=== PATIENT | female | born 1975 | race Caucasian/White ===

== ENCOUNTER 2018-07-15 19:23 | Emergency (ER) | payer MEDICAID ==
[2018-07-15 19:42] VITALS: BP 105/70
--- NOTE | 2018-07-15 20:46 | EDM.PDOC ---
<Ewa Foreman - Last Filed: 07/15/18 20:40> ED HPI GENERAL MEDICAL PROBLEM - General Chief Complaint: Upper Extremity Injury/Pain Stated Complaint: POSSIBLE BROKEN HAND Time Seen by Provider: 07/15/18 20:00 Source of Information: Reports: Patient History Limitations: Reports: No Limitations - History of Present Illness INITIAL COMMENTS - FREE TEXT/NARRATIVE: Pt fell approximately 10 days ago injuring her left hand. She thinks she jammed her thumb. This last weekend she fell out of be injuring her hand further. 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 Currently she states pain in the region of the thumb. Additionally she reports a headache that she attributes to the fall. Pt states otherwise well. Onset: Gradual Onset Date: 07/05/18 Onset Time: 15:00 Duration: Day(s):, Getting Worse Location: Reports: Upper Extremity, Left (mainly in the region of the thumb) Quality: Reports: Dull, Throbbing Severity: Moderate Improves with: Reports: Immobilization Worsens with: Reports: Movement Context: Reports: Trauma Associated Symptoms: Reports: No Other Symptoms Treatments MED SURG NURSE: Reports: Other (see below) (tape) Left Wrist Pain Score (Numeric/FACES): 3 - Related Data Allergies Allergy/AdvReac Type Severity Reaction Status Date / Time hydrocodone bitartrate Allergy Dizziness Verified 07/15/18 20:11 [From Vicodin] anxiety medication Allergy Seizure Uncoded 07/15/18 20:11 Home Meds: Home Meds Rizatriptan [Maxalt MANAGER APPLICATION DEVELOPMENT] 1 tab PO ASDIRECTED PRN 08/05/15 [History] 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 Medical 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: Neurological History: Reports: Migraines Psychiatric History: Reports: Anxiety Oncologic (Cancer) History: Reports: Basal Cell Carcinoma Dermatologic History: Reports: Other (See Below) Other Dermatologic History: 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 - Infectious Disease History Infectious Disease History: Reports: Chicken Pox - Past Surgical History GI Surgical History: Reports: Colonoscopy, EGD Female Surgical History: Reports: Tubal Ligation Endocrine Surgical History: Reports: Thyroidectomy Musculoskeletal Surgical History: Reports: Shoulder Surgery Oncologic Surgical History: Reports: Other (See Below) Social & Family History - Tobacco Use Smoking Status *Q: Current Every Day Smoker Years of Tobacco use: 20 Packs/Tins Daily: 0.5 Used Tobacco, but Quit: No Second Hand Smoke Exposure: Yes - Caffeine Use Caffeine Use: Reports: Soda - Recreational Drug Use Recreational Drug Use: No Review of Systems - Review of Systems Review Of Systems: See Below Constitutional: Reports: No Symptoms Musculoskeletal: Reports: Joint Pain (left thumb and wrist) Skin: Reports: No Symptoms Neurological: Reports: No Symptoms ED EXAM, GENERAL - Physical Exam Exam: See Below Exam Limited By: No Limitations General Appearance: Alert, WD/WN, No Apparent Distress Extremities: Normal Inspection, Normal Range of Motion, Normal Capillary Refill , Other (tender left thumb to palpation distally. pt has full ROM and sensation , without bruising or swelling noted) Neurological: Alert, Oriented, CN II-XII Intact, Normal Cognition, Normal Gait, Normal Reflexes Skin Exam: Warm, Dry, Intact, Normal Color Course - Vital Signs Last Recorded V/S: Last Vital Signs Temp 98.3 F 07/15/18 20:18 Pulse 87 07/15/18 20:18 Resp 14 07/15/18 20:18 BP 105/70 07/15/18 20:18 Pulse Ox 98 07/15/18 20:18 - Orders/Labs/Meds Orders: Active Orders 24 hr Category Date Time Status DME for Discharge [COMM] Per Unit Routine Oth 07/15/18 21:18 Ordered Unable to appreciate fracture or dislocation of left hand, thumb or wrist - waiting radiologist read to ensure no abnormal findings Departure - Departure Disposition: Home, Self-Care 01 Clinical Impression: Left thumb sprain Qualifiers: Encounter type: initial encounter Sprain of finger site: unspecified site Qualified Code(s): S63.602A - Unspecified sprain of left thumb, initial encounter - Discharge Information Referrals: Sarah Beth Tan NP [Primary Care Provider] - Forms: ED Department Discharge Additional Instructions: Continue to use splint as needed for comfort, use Tylenol or Motrin as needed for pain control, Please followup with your primary care provider in 5-7 days if not better, please call return to the emergency department with worsening of symptoms. - My Orders Last 24 Hours: My Active Orders 07/15/18 21:18 DME for Discharge [COMM] Per Unit Routine - Assessment/Plan Last 24 Hours: My Active Orders 07/15/18 21:18 DME for Discharge [COMM] Per Unit Routine <OfficerCr - Last Filed: 07/15/18 21:20> ED EXAM, GENERAL - Physical Exam Free Text/Narrative:: Agree with exam below Departure - Departure Time of Disposition: 21:20 Condition: Fair - Assessment/Plan Plan: Assessment Acuity = acute Site and laterality = thumb sprain left Etiology = secondary to trauma Manifestations = none Location of injury = Home Lab values = x-rays negative for any fracture Plan She is placed in a thumb spica splint follow-up with primary care in 5-7 days if no improvement continued use Tylenol Motrin as needed for pain control This note was dictated using [employer] voice recognition software please call with any questions on syntax or grammar.
--- NOTE | 2018-07-15 21:03 | CRLCR ---
INDICATION: Status post fall, proximal thumb pain TECHNIQUE: Left hand three views COMPARISON: None FINDINGS AND IMPRESSION: Normal alignment. No fracture. No significant soft tissue swelling. No degenerative changes. Dictated by Dinorah Mesa MD @ 07/15/2018 9:02:32 PM Dictated by: Dinorah Mesa MD @ 07/15/2018 21:02:39 (Electronically Signed)
== END 2018-07-15 21:41 | disposition home or self-care (01) ==
LOC: JP.ED 19:23
DX: S63.602A Unspecified sprain of left thumb, initial encounter (principal); F17.210 Nicotine dependence, cigarettes, uncomplicated; Z88.5 Allergy status to narcotic agent
CPT/HCPCS: 29125; 73130-LT; 99283-25

== ENCOUNTER 2020-08-15 10:38 | Emergency (ER) | payer MEDICAID ==
[2020-08-15] MEDS ORDERED: diphenhydrAMINE 50 MG/ML SDV IVPUSH ONE (11:07)
[2020-08-15] MEDS ORDERED: Ketorolac 30 MG/ML SDV IVPUSH ONE (11:07)
[2020-08-15] MEDS ORDERED: Prochlorperazine 10 MG/2 ML SDV IVPUSH ONE (11:07)
[2020-08-15] MEDS ORDERED: Sodium Chloride 0.9% 10 ML Syringe FLUSH PRN (11:07)
--- NOTE | 2020-08-15 11:11 | EDM.PDOC ---
ED HPI GENERAL MEDICAL PROBLEM - General Chief Complaint: Headache Stated Complaint: migraine Time Seen by Provider: 08/15/20 11:01 Source of Information: Reports: Patient, RN Notes Reviewed History Limitations: Reports: No Limitations - History of Present Illness INITIAL COMMENTS - FREE TEXT/NARRATIVE: 45-year-old female presents emergency department day complaint of headache, she has a known history of migraines she states this is very typical for her she does not have an aura she usually uses Maxalt unfortunately she ran out of that medication, has photophobia and nausea no fever - Related Data Allergies Allergy/AdvReac Type Severity Reaction Status Date / Time hydrocodone bitartrate Allergy Dizziness Verified 08/15/20 10:58 [From Vicodin] anxiety medication Allergy Seizure Uncoded 08/15/20 10:58 Home Meds: Home Meds Rizatriptan [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 AND SERVICE DIRECTOR] 1 tab PO ASDIRECTED PRN 08/05/15 [History] Rizatriptan [Maxalt RV PARTS AND SERVICE DIRECTOR] 10 mg PO ASDIRECTED PRN #6 tab.dis 08/15/20 [Rx] 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: Neurological History: Reports: Migraines Psychiatric History: Reports: Anxiety Oncologic (Cancer) History: Reports: Basal Cell Carcinoma Dermatologic History: Reports: Other (See Below) Other Dermatologic History: 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 - Infectious Disease History Infectious Disease History: Reports: Chicken Pox - Past Surgical History GI Surgical History: Reports: Colonoscopy, EGD Female Surgical History: Reports: Tubal Ligation Endocrine Surgical History: Reports: Thyroidectomy Other Endocrine Surgeries/Procedures: partial thyroid removal Musculoskeletal Surgical History: Reports: Shoulder Surgery Oncologic Surgical History: Reports: Biopsy of Breast, Other (See Below) Other Oncologic Surgeries/Procedures: thyroid nodules removed Social & Family History - Tobacco Use Tobacco Use Status *Q: Current Every Day Tobacco User Years of Tobacco use: 20 Packs/Tins Daily: 0.5 - Caffeine Use Caffeine Use: Reports: Soda - Recreational Drug Use Recreational Drug Use: No ED ROS GENERAL - Review of Systems Review Of Systems: See Below Constitutional: Reports: No Symptoms HEENT: Reports: Eye Pain GI/Abdominal: Reports: Nausea Neurological: Reports: Headache - Physical Exam Exam: See Below Exam Limited By: No Limitations General Appearance: Alert, WD/WN, No Apparent Distress Eye Exam: Bilateral Eye: EOMI, Normal Fundi, PERRL Respiratory/Chest: No Respiratory Distress Course - Orders/Labs/Meds Orders: Active Orders 24 hr Category Date Time Status Peripheral IV Care [RC] . DIRECTED Care 08/15/20 11:07 Active Sodium Chloride 0.9% [Normal Saline] 1,000 ml Med 08/15/20 11:15 Active IV ASDIRECTED Sodium Chloride 0.9% [Saline Flush] Med 08/15/20 11:07 Active 10 ml FLUSH ASDIRECTED PRN Peripheral IV Insertion Adult [OM.PC] Urgent Oth 08/15/20 11:06 Ordered Medication Orders Sodium Chloride (Normal Saline) 1,000 mls @ 999 mls/hr IV ASDIRECTED PADMINI Last Admin: 08/15/20 11:52 Dose: 999 mls/hr Documented by: HUI Sodium Chloride (Sodium Chloride 0.9% 10 Ml Syringe) 10 ml FLUSH ASDIRECTED PRN PRN Reason: Keep Vein Open Meds: Medications Generic Name Dose Route Start Last Admin Trade Name Freq PRN Reason Stop Dose Admin Sodium Chloride 1,000 mls @ 999 mls/hr 08/15/20 11:15 08/15/20 11:52 Normal Saline IV 999 mls/hr ASDIRECTED PADMINI Administration Sodium Chloride 10 ml 08/15/20 11:07 Sodium Chloride 0.9% 10 Ml Syringe FLUSH ASDIRECTED PRN Keep Vein Open Discontinued Medications Generic Name Dose Route Start Last Admin Trade Name Freq PRN Reason Stop Dose Admin Diphenhydramine HCl 50 mg 08/15/20 11:07 08/15/20 11:54 Diphenhydramine 50 Mg/Ml Sdv IVPUSH 08/15/20 11:08 50 mg ONETIME ONE Administration Ketorolac Tromethamine 30 mg 08/15/20 11:07 08/15/20 11:55 Ketorolac 30 Mg/Ml Sdv IVPUSH 08/15/20 11:08 30 mg ONETIME ONE Administration Prochlorperazine Edisylate 5 mg 08/15/20 11:07 08/15/20 11:54 Prochlorperazine 10 Mg/2 Ml Sdv IVPUSH 08/15/20 11:08 5 mg ONETIME ONE Administration Departure - Departure Time of Disposition: 13:00 Disposition: Home, Self-Care 01 Condition: Fair Clinical Impression: Migraine - Discharge Information Prescriptions: Rizatriptan [Maxalt RV PARTS AND SERVICE DIRECTOR] 10 mg PO ASDIRECTED PRN #6 tab.dis PRN Reason: Headache Instructions: Migraine Headache, [id number] Referrals: PCP,None [Primary Care Provider] - Forms: ED Department Discharge Additional Instructions: Continue with your regular medications, your Maxalt has been faxed to [facility] pharmacy call return to the emergency department worsening of symptoms - My Orders Last 24 Hours: My Active Orders 08/15/20 11:06 Peripheral IV Insertion Adult [OM.PC] Urgent 08/15/20 11:07 Peripheral IV Care [RC] . DIRECTED Sodium Chloride 0.9% [Saline Flush] 10 ml FLUSH ASDIRECTED PRN 08/15/20 11:15 Sodium Chloride 0.9% [Normal Saline] 1,000 ml IV ASDIRECTED - Assessment/Plan Last 24 Hours: My Active Orders 08/15/20 11:06 Peripheral IV Insertion Adult [OM.PC] Urgent 08/15/20 11:07 Peripheral IV Care [RC] . DIRECTED Sodium Chloride 0.9% [Saline Flush] 10 ml FLUSH ASDIRECTED PRN 08/15/20 11:15 Sodium Chloride 0.9% [Normal Saline] 1,000 ml IV ASDIRECTED Plan: Assessment Acuity = acute Site and laterality = migraine Etiology = unknown Manifestations = none Location of injury = Home Lab values = none Plan Good improvement combination Toradol, Compazine and Benadryl 1 L fluids headache had improved she is can continue with regular medications prescription of Maxalt 10 mg written sent to [facility] total #6 This note was dictated using [employer] voice recognition software please call with any questions on syntax or grammar.
[2020-08-15] MEDS ORDERED: Sodium Chloride 0.9% 1,000 ML IV SCH (11:15)
[2020-08-15 13:01] VITALS: BP 117/72; PULSE 60
== END 2020-08-15 13:09 | disposition home or self-care (01) ==
LOC: JP.ED 10:38
DX: G43.909 Migraine, unspecified, not intractable, without status migrainosus (principal); Z88.5 Allergy status to narcotic agent; Z88.8 Allergy status to other drugs, medicaments and biological substances; Z72.0 Tobacco use
CPT/HCPCS: 96374; 96375; 99283; J0780; J1200; J1885; J7030

== ENCOUNTER 2024-01-11 15:30 | Emergency (ER) | payer MEDICAID ==
[2024-01-11] MEDS: Sodium Chloride 0.9% 1,000 ML IV SCH (16:30)
[2024-01-11] MEDS: Pantoprazole 40 MG Vial IVPUSH ONE (16:31)
[2024-01-11] MEDS: LORazepam 2 MG/ML SDV IVPUSH ONE (16:33)
[2024-01-11 16:36] LABS: BASE EXCESS ARTERIAL 1.4 mm/L; BICARBONATE,ARTERIAL 20.4 mmol/L (22.0-26.0); CARBOXYHEMOGLOBIN 1.6 % (0.0-1.6); METHEMOGLOBIN 1.1 %; O2 SATURATION ARTERIAL 99.2 % (95.0-98.0); OXYHEMOGLOBIN 96.5 %; TOTAL HEMOGLOBIN 13.3 g/dL (12.0-16.0)
[2024-01-11 16:36] LABS: HEMATOCRIT 35.1 % (34.3-46.0); HEMOGLOBIN 12.8 g/dL (11.2-15.5); MEAN CORPUSCULAR HGB CONC 36.5 g/dL (31.6-35.5); PLATELET COUNT,PLT 287 K/uL (130-375); RED BLOOD CELL COUNT 4.13 M/uL (3.77-5.24); WHITE BLOOD CELL COUNT,WBC 12.7 K/uL (3.2-11.0)
[2024-01-11] MEDS: droPERidol 5 MG/2 ML SDV IVPUSH ONE (16:36)
[2024-01-11 16:38] LABS: PCO2 ARTERIAL 18.2 mmHg (35.0-42.0)
[2024-01-11 16:50] LABS: CALCIUM 9.1 mg/dL (8.5-10.1); CREATININE 0.8 mg/dL (0.6-1.0); EST CRCL DRUG DOSING (CG) 73.46 mL/min; POTASSIUM,K 3.2 mmol/L (3.6-5.2)
[2024-01-11 16:51] LABS: ANION GAP 15.2 mmol/L (5.0-14.0)
[2024-01-11 16:53] LABS: ATYPICAL LYMPHOCYTES FEW; LYMPHOCYTES ABSOLUTE MAN 5.08 K/uL (0.8-3.3); LYMPHOCYTES PERCENT MAN 40 % (24-44); MONOCYTES ABSOLUTE MAN 0.51 K/uL (0.20-0.90); MONOCYTES PERCENT MAN 4 % (2-6); NEUTROPHILS ABSOLUTE MAN 7.11 K/uL (1.0-7.6); SEG NEUTROPHILS PERCENT MAN 56 % (36-66)
[2024-01-11 17:08] LABS: AMPHETAMINES SCREEN, URINE NEGATIVE (NEGATIVE); BARBITURATE SCREEN,URINE NEGATIVE (NEGATIVE); BENZODIAZEPINES SCREEN,URINE NEGATIVE (NEGATIVE); METHADONE SCREEN, URINE NEGATIVE (NEGATIVE); METHAMPHETAMINES SCREEN, URINE NEGATIVE (NEGATIVE); OXYCODONE SCREEN,URINE NEGATIVE (NEGATIVE); PROPOXYPHENE SCREEN,URINE NEGATIVE (NEGATIVE); THC SCREEN,URINE 50 NG/ML PRESUMPTIVE POSITIVE (NEGATIVE)
[2024-01-11 17:26] VITALS: BP 146/72; PULSE 75
== END 2024-01-11 18:10 | disposition home or self-care (01) ==
LOC: JP.ED 15:30
DX: R11.15 Cyclical vomiting syndrome unrelated to migraine (principal); Z79.899 Other long term (current) drug therapy; Z88.5 Allergy status to narcotic agent; Z88.8 Allergy status to other drugs, medicaments and biological substances
CPT/HCPCS: 36415; 36600; 80048; 80305; 82803; 85025; 96361; 96374; 96375; 99284; J1790; J2060; J2470; J7030

== ENCOUNTER 2024-02-04 09:45 | Emergency (ER) | payer MEDICAID ==
[2024-02-04 09:54] VITALS: BP 146/89; PULSE 112
[2024-02-04 11:35] LABS: BASOPHILS PERCENT AUTO 0.2 % (0.1-1.3); HEMOGLOBIN 14.8 g/dL (11.2-15.5); IMMATURE GRAN ABSOLUTE AUTO 0.04 K/uL (0.00-0.23); IMMATURE GRAN PERCENT AUTO 0.3 % (0.0-0.7); LYMPHOCYTES ABSOLUTE AUTO 3.07 K/uL (0.8-3.3); LYMPHOCYTES PERCENT AUTO 23.4 % (11.4-47.7); MEAN CORPUSCULAR HEMOGLOBIN 31.4 pg (31.6-35.5); MEAN CORPUSCULAR VOLUME 84.7 fL (81.4-99.0); MONOCYTES ABSOLUTE AUTO 0.95 K/uL (0.20-0.90); MONOCYTES PERCENT AUTO 7.3 % (3.3-12.6); NEUTROPHILS ABSOLUTE AUTO 9.02 K/uL (1.0-7.6); NEUTROPHILS PERCENT AUTO 68.8 % (40.0-78.1); PLATELET COUNT,PLT 273 K/uL (130-375); RED BLOOD CELL COUNT 4.72 M/uL (3.77-5.24); WHITE BLOOD CELL COUNT,WBC 13.1 K/uL (3.2-11.0)
[2024-02-04 11:52] LABS: BASOPHILS ABSOLUTE AUTO 0.02 K/uL (0.00-0.10)
[2024-02-04] MEDS: Sodium Chloride 0.9% 1,000 ML IV ONE (11:52)
[2024-02-04] MEDS: droPERidol 5 MG/2 ML SDV IVPUSH ONE (11:52)
[2024-02-04] MEDS: Alum Hydrox/Mag Hydrox/Simeth 15 ML, Lidocaine 2% 15 ML PO ONE ×2 (11:52→16:13)
[2024-02-04 12:03] LABS: A/G RATIO 1.2 (1.2-2.2); ALANINE AMINOTRANSFERASE,ALT 15 U/L (12-78); ALBUMIN 4.3 g/dL (3.4-5.0); ALKALINE PHOSPHATASE 86 U/L (46-116); ASPARTATE AMNIOTRANSFERASE,AST 10 U/L (15-37); BILIRUBIN TOTAL 0.8 mg/dL (0.2-1.0); BLOOD UREA NITROGEN,BUN 14 mg/dL (7-18); CALCIUM 10.1 mg/dL (8.5-10.1); CARBON DIOXIDE,CO2 23 mmol/L (21-32); CHLORIDE,CL 101 mmol/L (100-108); CREATININE 0.9 mg/dL (0.6-1.0); EST CRCL DRUG DOSING (CG) 61.86 mL/min; ESTIMATED GFR 78 mL/min (>60); GLUCOSE RANDOM 118 mg/dL (74-106); PROTEIN TOTAL,TP 7.8 g/dL (6.4-8.2); SODIUM,NA 141 mmol/L (140-148)
[2024-02-04 12:34] LABS: AMPHETAMINES SCREEN, URINE NEGATIVE (NEGATIVE); BARBITURATE SCREEN,URINE NEGATIVE (NEGATIVE); BENZODIAZEPINES SCREEN,URINE NEGATIVE (NEGATIVE); METHADONE SCREEN, URINE NEGATIVE (NEGATIVE); METHAMPHETAMINES SCREEN, URINE NEGATIVE (NEGATIVE); OXYCODONE SCREEN,URINE NEGATIVE (NEGATIVE); PROPOXYPHENE SCREEN,URINE NEGATIVE (NEGATIVE); THC SCREEN,URINE 50 NG/ML NEGATIVE (NEGATIVE)
[2024-02-04] MEDS: Potassium Chloride 10 MEQ in Premix Bag 1 BAG IV ONE (12:38)
[2024-02-04] MEDS: Iopamidol 612 MG/ML 100 ML Bottle IV PRN (13:27)
[2024-02-04] MEDS: Sodium Chloride 0.9% 80 ML IV ONE (13:27)
[2024-02-04] MEDS: Sodium Chloride 0.9% 10 ML Syringe FLUSH PRN (13:29)
[2024-02-04] MEDS: Ondansetron 4 MG/2 ML SDV IVPUSH ONE (15:31)
[2024-02-04 15:35] LABS: APPEARANCE,URINE CLEAR (CLEAR); BILIRUBIN,URINE SMALL (NEGATIVE); COLOR,URINE YELLOW (YELLOW); GLUCOSE,URINE NEGATIVE (NEGATIVE); KETONES,URINE >=160 mg/dL (NEGATIVE); LEUKOCYTE ESTERASE,URINE NEGATIVE (NEGATIVE); NITRITE,URINE NEGATIVE (NEGATIVE); OCCULT BLOOD,URINE TRACE-INTACT (NEGATIVE); PH,URINE 8.5 (5.0-8.0); PROTEIN,URINE 100 mg/dL (NEGATIVE); UROBILINOGEN,URINE 0.2 EU/dL (0.2-1.0)
[2024-02-04 15:47] LABS: AMORPHOUS SEDIMENT,URINE FEW; BACTERIA,URINE MODERATE; EPITHELIAL CELLS,URINE OCCASIONAL; MUCUS,URINE FEW; RBC,URINE 0-5 (0-5); WBC,URINE 0-5 (0-5)
== END 2024-02-04 16:26 | disposition home or self-care (01) ==
LOC: JP.ED 09:45
DX: R11.2 Nausea with vomiting, unspecified (principal); E86.0 Dehydration; F17.210 Nicotine dependence, cigarettes, uncomplicated; Z79.899 Other long term (current) drug therapy; Z88.5 Allergy status to narcotic agent; Z88.8 Allergy status to other drugs, medicaments and biological substances
CPT/HCPCS: 36415; 74177; 80053; 80305; 81001; 83605; 84484; 85025; 87086; 96361; 96365; 96375; 99285; A9270; J1790; J2405; J3480; J3490; J7030; Q9967

== ENCOUNTER 2024-02-11 18:07 | Emergency (ER) | payer MEDICAID ==
[2024-02-11 19:05] LABS: BASOPHILS PERCENT AUTO 0.2 % (0.1-1.3); EOSINOPHILS PERCENT AUTO 0.2 % (0.0-5.4); HEMATOCRIT 42.2 % (34.3-46.0); HEMOGLOBIN 15.3 g/dL (11.2-15.5); IMMATURE GRAN ABSOLUTE AUTO 0.04 K/uL (0.00-0.23); IMMATURE GRAN PERCENT AUTO 0.4 % (0.0-0.7); LYMPHOCYTES ABSOLUTE AUTO 2.44 K/uL (0.8-3.3); LYMPHOCYTES PERCENT AUTO 23.7 % (11.4-47.7); MEAN CORPUSCULAR HEMOGLOBIN 31.9 pg (31.6-35.5); MEAN CORPUSCULAR HGB CONC 36.3 g/dL (31.6-35.5); MEAN CORPUSCULAR VOLUME 87.9 fL (81.4-99.0); MONOCYTES ABSOLUTE AUTO 0.47 K/uL (0.20-0.90); MONOCYTES PERCENT AUTO 4.6 % (3.3-12.6); NEUTROPHILS ABSOLUTE AUTO 7.29 K/uL (1.0-7.6); NEUTROPHILS PERCENT AUTO 70.9 % (40.0-78.1); PLATELET COUNT,PLT 243 K/uL (130-375); WHITE BLOOD CELL COUNT,WBC 10.3 K/uL (3.2-11.0)
[2024-02-11 19:08] LABS: BASOPHILS ABSOLUTE AUTO 0.02 K/uL (0.00-0.10); EOSINOPHILS ABSOLUTE AUTO 0.02 K/uL (0.00-0.40)
[2024-02-11] MEDS: LORazepam 2 MG/ML SDV IVPUSH ONE (19:27)
[2024-02-11 19:28] LABS: A/G RATIO 1.1 (1.2-2.2); ALANINE AMINOTRANSFERASE,ALT 27 U/L (12-78); ALBUMIN 3.8 g/dL (3.4-5.0); ALKALINE PHOSPHATASE 75 U/L (46-116); ASPARTATE AMNIOTRANSFERASE,AST 17 U/L (15-37); BILIRUBIN TOTAL 0.8 mg/dL (0.2-1.0); BLOOD UREA NITROGEN,BUN 5 mg/dL (7-18); CALCIUM 9.6 mg/dL (8.5-10.1); CARBON DIOXIDE,CO2 24 mmol/L (21-32); CHLORIDE,CL 102 mmol/L (100-108); CREATININE 0.7 mg/dL (0.6-1.0); ESTIMATED GFR 105 mL/min (>60); GLUCOSE RANDOM 109 mg/dL (74-106); POTASSIUM,K 3.8 mmol/L (3.6-5.2); PROTEIN TOTAL,TP 7.2 g/dL (6.4-8.2); SODIUM,NA 139 mmol/L (140-148)
[2024-02-11 19:33] LABS: ANION GAP 16.8 mmol/L (5.0-14.0); C-REACTIVE PROTEIN < 0.50 mg/dL (<0.50); TROPONIN I HIGH SENSITIVITY < 4.0 pg/mL (<=60.3)
[2024-02-11] MEDS: droPERidol 5 MG/2 ML SDV IVPUSH ONE (19:33)
[2024-02-11] MEDS: Lactated Ringers 1,000 ML IV ONE (19:35)
[2024-02-11 20:25] LABS: APPEARANCE,URINE SLIGHTLY CLOUDY (CLEAR); BILIRUBIN,URINE NEGATIVE (NEGATIVE); COLOR,URINE YELLOW (YELLOW); GLUCOSE,URINE NEGATIVE (NEGATIVE); KETONES,URINE 80 mg/dL (NEGATIVE); LEUKOCYTE ESTERASE,URINE NEGATIVE (NEGATIVE); NITRITE,URINE NEGATIVE (NEGATIVE); OCCULT BLOOD,URINE NEGATIVE (NEGATIVE); PH,URINE >= 9.0 (5.0-8.0); PROTEIN,URINE 100 mg/dL (NEGATIVE); UROBILINOGEN,URINE 0.2 EU/dL (0.2-1.0)
[2024-02-11 20:31] LABS: RBC,URINE NOT SEEN (0-5); WBC,URINE 0-5 (0-5)
[2024-02-11 20:32] LABS: AMORPHOUS SEDIMENT,URINE MANY; BACTERIA,URINE FEW; EPITHELIAL CELLS,URINE FEW; MUCUS,URINE MODERATE
[2024-02-11 20:34] LABS: AMPHETAMINES SCREEN, URINE NEGATIVE (NEGATIVE); BARBITURATE SCREEN,URINE NEGATIVE (NEGATIVE); BENZODIAZEPINES SCREEN,URINE PRESUMPTIVE POSITIVE (NEGATIVE); METHADONE SCREEN, URINE NEGATIVE (NEGATIVE); METHAMPHETAMINES SCREEN, URINE NEGATIVE (NEGATIVE); OXYCODONE SCREEN,URINE NEGATIVE (NEGATIVE); PROPOXYPHENE SCREEN,URINE NEGATIVE (NEGATIVE); THC SCREEN,URINE 50 NG/ML NEGATIVE (NEGATIVE)
[2024-02-11 21:38] VITALS: BP 131/89; PULSE 111
[2024-02-11] MEDS: Amitriptyline 25 MG Tab PO ONE (22:01)
[2024-02-11] MEDS: Magnesium Oxide 400 MG Tab PO ONE (22:01)
== END 2024-02-11 22:12 | disposition home or self-care (01) ==
LOC: JP.ED 18:07
DX: R11.15 Cyclical vomiting syndrome unrelated to migraine (principal); Z87.891 Personal history of nicotine dependence; Z79.899 Other long term (current) drug therapy; Z88.8 Allergy status to other drugs, medicaments and biological substances
CPT/HCPCS: 36415; 80053; 80305; 81001; 83605; 83690; 83735; 84484; 85025; 86140; 93005; 93010; 96361; 96374; 96375; 99284; A9270; J1790; J2060; J7120

== ENCOUNTER 2024-02-17 20:28 | Emergency (ER) | payer MEDICAID ==
[2024-02-17 20:44] LABS: BASOPHILS ABSOLUTE AUTO 0.05 K/uL (0.00-0.10); BASOPHILS PERCENT AUTO 0.5 % (0.1-1.3); EOSINOPHILS ABSOLUTE AUTO 0.11 K/uL (0.00-0.40); HEMATOCRIT 41.6 % (34.3-46.0); HEMOGLOBIN 15.3 g/dL (11.2-15.5); IMMATURE GRAN ABSOLUTE AUTO 0.03 K/uL (0.00-0.23); IMMATURE GRAN PERCENT AUTO 0.3 % (0.0-0.7); LYMPHOCYTES ABSOLUTE AUTO 4.61 K/uL (0.8-3.3); LYMPHOCYTES PERCENT AUTO 42.1 % (11.4-47.7); MEAN CORPUSCULAR HEMOGLOBIN 32.2 pg (31.6-35.5); MEAN CORPUSCULAR HGB CONC 36.8 g/dL (31.6-35.5); MEAN CORPUSCULAR VOLUME 87.6 fL (81.4-99.0); MONOCYTES ABSOLUTE AUTO 0.74 K/uL (0.20-0.90); MONOCYTES PERCENT AUTO 6.8 % (3.3-12.6); NEUTROPHILS ABSOLUTE AUTO 5.41 K/uL (1.0-7.6); NEUTROPHILS PERCENT AUTO 49.3 % (40.0-78.1); PLATELET COUNT,PLT 297 K/uL (130-375); RED BLOOD CELL COUNT 4.75 M/uL (3.77-5.24)
[2024-02-17] MEDS: Sodium Chloride 0.9% 1,000 ML IV ONE ×2 (21:00→22:23)
[2024-02-17 21:16] LABS: ALANINE AMINOTRANSFERASE,ALT 18 U/L (12-78); ALBUMIN 3.5 g/dL (3.4-5.0); ALKALINE PHOSPHATASE 68 U/L (46-116); ASPARTATE AMNIOTRANSFERASE,AST 7 U/L (15-37); BILIRUBIN TOTAL 0.8 mg/dL (0.2-1.0); BLOOD UREA NITROGEN,BUN 7 mg/dL (7-18); CALCIUM 9.3 mg/dL (8.5-10.1); CARBON DIOXIDE,CO2 24 mmol/L (21-32); CHLORIDE,CL 98 mmol/L (100-108); CREATININE 0.8 mg/dL (0.6-1.0); EST CRCL DRUG DOSING (CG) 69.59 mL/min; ESTIMATED GFR 90 mL/min (>60); GLUCOSE RANDOM 86 mg/dL (74-106); POTASSIUM,K 3.1 mmol/L (3.6-5.2); PROTEIN TOTAL,TP 6.9 g/dL (6.4-8.2); SODIUM,NA 136 mmol/L (140-148); TROPONIN I HIGH SENSITIVITY 4.4 pg/mL (<=60.3)
[2024-02-17 21:18] LABS: ANION GAP 17.1 mmol/L (5.0-14.0)
[2024-02-17] MEDS: Alum Hydrox/Mag Hydrox/Simeth 15 ML, Lidocaine 2% 15 ML PO ONE (21:56)
[2024-02-17 22:22] LABS: APPEARANCE,URINE CLOUDY (CLEAR); BILIRUBIN,URINE SMALL (NEGATIVE); COLOR,URINE YELLOW (YELLOW); GLUCOSE,URINE NEGATIVE (NEGATIVE); KETONES,URINE 80 mg/dL (NEGATIVE); LEUKOCYTE ESTERASE,URINE NEGATIVE (NEGATIVE); NITRITE,URINE NEGATIVE (NEGATIVE); OCCULT BLOOD,URINE TRACE-INTACT (NEGATIVE); PROTEIN,URINE 30 mg/dL (NEGATIVE); UROBILINOGEN,URINE 0.2 EU/dL (0.2-1.0)
[2024-02-17] MEDS: Metoclopramide 10 MG/2 ML SDV IVPUSH ONE (22:23)
[2024-02-17 22:28] VITALS: BP 100/68; PULSE 90
[2024-02-17 22:31] LABS: RBC,URINE 0-5 (0-5)
[2024-02-17 22:32] LABS: AMORPHOUS SEDIMENT,URINE NOT SEEN; AMPHETAMINES SCREEN, URINE NEGATIVE (NEGATIVE); BACTERIA,URINE MANY; BARBITURATE SCREEN,URINE NEGATIVE (NEGATIVE); BENZODIAZEPINES SCREEN,URINE PRESUMPTIVE POSITIVE (NEGATIVE); EPITHELIAL CELLS,URINE FEW; METHADONE SCREEN, URINE NEGATIVE (NEGATIVE); METHAMPHETAMINES SCREEN, URINE NEGATIVE (NEGATIVE); MUCUS,URINE FEW; OXYCODONE SCREEN,URINE NEGATIVE (NEGATIVE); PROPOXYPHENE SCREEN,URINE NEGATIVE (NEGATIVE); THC SCREEN,URINE 50 NG/ML NEGATIVE (NEGATIVE)
== END 2024-02-17 23:43 | disposition home or self-care (01) ==
LOC: JP.ED 20:28
DX: R11.2 Nausea with vomiting, unspecified (principal); R10.84 Generalized abdominal pain; E86.0 Dehydration; Z79.899 Other long term (current) drug therapy; Z88.5 Allergy status to narcotic agent; Z88.8 Allergy status to other drugs, medicaments and biological substances
CPT/HCPCS: 36415; 71045; 74176; 80053; 80305; 80307; 81001; 82140; 82550; 83605; 83690; 84484; 85025; 93005; 96361; 96374; 99284; 99285; A9270; J2765; J7030